=== PATIENT | male | born 1970 | race Caucasian/White ===

== ENCOUNTER 2017-06-21 20:03 | Observation (INO) | payer SELFPAY ==
[~2017-06-21] VITALS: Ht 180.3 cm; Wt 70.2 kg
[2017-06-21 20:05] VITALS: BP 119/75; PULSE 83; RESP 16; TEMP 98.7; O2SAT 97
[2017-06-21] MEDS ORDERED: SODIUM CHLOR 0.9% 1000 ML INJ 1,000 ML IV SCH (20:14)
[2017-06-21] MEDS ORDERED: KETOROLAC TROMETHAMINE 30 MG/ML (IVP) VIAL IVP ONE (20:15)
--- NOTE | 2017-06-21 20:22 | PD ---
HPI Chief Complaint: WEAKNESS Time Seen by Provider: 20:17 Travel History International Travel<30 days: No Contact w/Intl Traveler<30days: No Traveled to known affect area: No History of Present Illness HPI 47-year-old male that presents to the ED for evaluation of generalized weakness , body aches and chest discomfort. Per patient and Monday he was possibly bitten by something. Per patient he has a bite to his left leg. Per patient he was painful the beginning and then he became more red but now does not want to hurt. Per patient for the past couple days his been feeling weak and tired. He denies congestion or cough. She states that today he started developing chest pain. Per patient he also has a headache. He denies any other medical issues. He has not seen anybody for this. He does smoke. No allergies to medication. Has been taking OTC meds with minimal relief. Pain on the chest is 6 out of 10. Comes and goes. PFSH Past Medical History Medical History: Denies Significant Hx Social History Alcohol Use: Yes Tobacco Use: Yes Substance Use: No Allergies-Medications (Allergen,Severity, Reaction): Coded Allergies: No Known Allergies (Unverified , 06/21/17) Review of Systems Except as stated in HPI: all other systems reviewed are Neg Physical Exam Narrative GENERAL: SKIN: Warm and dry. HEAD: Atraumatic. Normocephalic. EYES: Pupils equal and round. No scleral icterus. No injection or drainage. ENT: No nasal bleeding or discharge. Mucous membranes pink and moist. Tongue is midline. No uvula deviation. TMs are clear with no sign of infection or perforation. Nostrils are patent bilaterally. Tonsils are normal. NECK: Trachea midline. No JVD. CARDIOVASCULAR: Regular rate and rhythm. No murmurs, S3, S4. RESPIRATORY: No accessory muscle use. Clear to auscultation. Breath sounds equal bilaterally. GASTROINTESTINAL: Abdomen soft, non-tender, nondistended. Hepatic and splenic margins not palpable. MUSCULOSKELETAL: Extremities without clubbing, cyanosis, or edema. No obvious deformities. Full range of motion of the upper and lower extremities bilaterally. 2+ pulses bilaterally. NEUROLOGICAL: Awake and alert. No obvious cranial nerve deficits. Motor grossly within normal limits. Five out of 5 muscle strength in the arms and legs. Normal speech. PSYCHIATRIC: Appropriate mood and affect; insight and judgment normal. Data Data Last Documented VS Vital Signs Date Time Temp Pulse Resp B/P Pulse Ox O2 Delivery O2 Flow Rate FiO2 06/21/17 20:28 97 06/21/17 20:05 98.7 83 16 119/75 Orders Electrocardiogram (06/21/17 20:14) Complete Blood Count With Diff (06/21/17 20:14) Basic Metabolic Panel (Bmp) (06/21/17 20:14) Ckmb (Isoenzyme) Profile (06/21/17 20:14) Troponin I (06/21/17 20:14) Blood Culture (06/21/17 20:14) Lipase (06/21/17 20:14) Urinalysis - C+S If Indicated (06/21/17 20:14) Magnesium (Mg) (06/21/17 20:14) Thyroid Stimulating Hormone (06/21/17 20:14) Chest, Single Ap (06/21/17 20:14) Iv Access Insert/Monitor (06/21/17 20:14) Ecg Monitoring (06/21/17 20:14) Oximetry (06/21/17 20:14) Drug Screen, Random Urine (06/21/17 20:14) Alcohol (Ethanol) (06/21/17 20:14) Lactic Acid (06/21/17 20:14) Lyme Disease Pcr (06/21/17 20:14) Sodium Chlor 0.9% 1000 Ml Inj (Ns 1000 M (06/21/17 20:14) Ketorolac Inj (Toradol Inj) (06/21/17 20:15) Influenzae A/B Antigen (06/21/17 20:14) Aspirin (Aspirin) (06/21/17 21:00) CKMB (06/21/17 20:30) CKMB% (06/21/17 20:30) C-Reactive Protein (Crp) (06/21/17 21:46) Westergren Sedimentation Rate (06/21/17 21:46) Vancomycin Inj (Vancomycin Inj) (06/21/17 22:00) Doxycycline Inj (Vibramycin Inj) (06/21/17 22:00) Labs Laboratory Tests Test 06/21/17 06/21/17 06/21/17 20:30 20:35 20:45 White Blood Count 6.3 TH/MM3 Red Blood Count 4.09 MIL/MM3 Hemoglobin 13.0 GM/DL Hematocrit 37.8 % Mean Corpuscular Volume 92.5 FL Mean Corpuscular Hemoglobin 31.9 PG Mean Corpuscular Hemoglobin 34.5 % Concent Red Cell Distribution Width 12.0 % Platelet Count 127 TH/MM3 Mean Platelet Volume 8.4 FL Neutrophils (%) (Auto) 74.8 % Lymphocytes (%) (Auto) 15.5 % Monocytes (%) (Auto) 8.5 % Eosinophils (%) (Auto) 0.6 % Basophils (%) (Auto) 0.6 % Neutrophils # (Auto) 4.8 TH/MM3 Lymphocytes # (Auto) 1.0 TH/MM3 Monocytes # (Auto) 0.5 TH/MM3 Eosinophils # (Auto) 0.0 TH/MM3 Basophils # (Auto) 0.0 TH/MM3 CBC Comment DIFF FINAL Differential Comment Sodium Level 137 MEQ/L Potassium Level 3.6 MEQ/L Chloride Level 104 MEQ/L Carbon Dioxide Level 26.4 MEQ/L Anion Gap 7 MEQ/L Blood Urea Nitrogen 7 MG/DL Creatinine 0.83 MG/DL Estimat Glomerular Filtration 98 ML/MIN Rate Random Glucose 90 MG/DL Calcium Level 8.5 MG/DL Magnesium Level 2.0 MG/DL Total Creatine Kinase 158 U/L Creatine Kinase MB 1.2 NG/ML Troponin I LESS THAN 0.02 NG/ML Lipase 151 U/L Thyroid Stimulating Hormone 1.080 uIU/ML 3rd Gen Ethyl Alcohol Level LESS THAN 3 MG/DL Lactic Acid Level 0.9 mmol/L Urine Color YELLOW Urine Turbidity CLEAR Urine pH 6.0 Urine Specific [place] 1.005 Urine Protein NEG mg/dL Urine Glucose (UA) NEG mg/dL Urine Ketones NEG mg/dL Urine Occult Blood NEG Urine Nitrite NEG Urine Bilirubin NEG Urine Leukocyte Esterase NEG Urine Squamous Epithelial 0-5 /hpf Cells Microscopic Urinalysis Comment CULT NOT INDICATED Urine Opiates Screen NEG Urine Barbiturates Screen NEG Urine Amphetamines Screen NEG Urine Benzodiazepines Screen NEG Urine Cocaine Screen NEG Urine Cannabinoids Screen NEG [facility] Medical Decision Making Medical Screen Exam Complete: Yes Emergency Medical Condition: Yes Medical Record Reviewed: Yes Interpretation(s) EKG shows sinus rhythm with no sign of acute ischemia or arrhythmia read by me and attending. CBC & BMP Diagram 06/21/17 20:30 troponin and CKMB negative lactic acid negative UA negative tox screen negative Last Impressions Chest X-Ray 06/21/172013 Signed Impressions: Service Date/Time: Wednesday, June 21, 2017 20:49 - CONCLUSION: No acute disease. Telly Bernal MD lactic acid WNL Differential Diagnosis Generalized weakness versus chest pain versus atypical chest pain versus viral illness versus kidney disease versus sepsis versus influenza versus ACS Narrative Course 47-year-old male that presents to the ED for evaluation of generalized weakness and insect bite. Patient was properly examined and was found to have signs and symptoms consistent what appears to be possible viral illness versus take disease. Patient did have insect bite to his left leg and ever since his been having the symptoms. He apparently told triage that he had cold-like symptoms but he completely denies having any cough or runny nose. He states that his main symptoms of generalized weakness and body aches all throughout. He has been taking OTC meds with minimal relief. He also complains of chest pain and is a smoker. He does have risk factors including age. Per patient he has chest pain at this time. ACS appears to be less likely. At this time I recommend labs and imaging. Labs and imaging were ordered and showed no sign of acute disease. Everything for the most part has been negative. Not even a WBC count. Patient still feels lousy even after given 1 bolus of fluid as well as Toradol IV. Case was discussed in my attending Dr. Fitzgerald who was made aware of all findings and actually evaluated the patient with me. He recommends admission for further workup and evaluation. States that this is less likely Lyme disease but will cover for this with doxycycline secondary to patient's symptoms. My attending spoke with Dr. millan agreed to admission for. Diagnosis Primary Impression: Chest pain Qualified Code: R07.9 - Chest pain, unspecified type Additional Impressions: Left leg cellulitis Arthralgia Qualified Code: M25.50 - Arthralgia, unspecified joint Myalgia Admitting Information Admitting Physician Requests: Selvin Carcamo Jun 21, 2017 20:22
[2017-06-21 20:28] VITALS: O2SAT 97
[2017-06-21 20:53] LABS: AUTOMATED NEUTROPHIL # 4.8 TH/MM3 (1.8-7.7); BASOPHIL % 0.6 % (0.0-2.0); EOSINOPHIL % 0.6 % (0.0-4.0); HEMATOCRIT 37.8 % (39.0-51.0); HEMO FLAGS DIFF FINAL; LYMPH % 15.5 % (9.0-44.0); MEAN CELL VOLUME 92.5 FL (80.0-100.0); MEAN CORPUSCULAR HEMOGLOBIN 31.9 PG (27.0-34.0); MEAN CORPUSCULAR HGB CONC 34.5 % (32.0-36.0); MONO % 8.5 % (0.0-8.0); NEUT % 74.8 % (16.0-70.0); PLATELET COUNT 127 TH/MM3 (150-450); RED BLOOD COUNT 4.09 MIL/MM3 (4.50-5.90); WHITE BLOOD COUNT 6.3 TH/MM3 (4.0-11.0)
[2017-06-21 20:55] LABS: BLOOD, URINE NEG (NEG); GLUCOSE,URINE NEG (NEG); KETONE, URINE NEG (NEG); NITRITE,URINE NEG (NEG)
[2017-06-21] MEDS ORDERED: ASPIRIN 325 MG TAB PO ONE (21:00)
[2017-06-21 21:03] LABS: CHLORIDE 104 MEQ/L (98-107); POTASSIUM 3.6 MEQ/L (3.5-5.1); SODIUM (NA) 137 MEQ/L (136-145)
[2017-06-21 21:06] LABS: ANION GAP 7 MEQ/L (5-15); BICARBONATE 26.4 MEQ/L (21.0-32.0)
[2017-06-21 21:06] LABS: COMMENT (UR) CULT NOT INDICATED; CULTURE IF INDICATED CULT NOT INDICATED; SQUAMOUS EPITHELIAL CELL URINE 0-5 /hpf (0-5); URINE COLOR YELLOW (YELLW/STRAW)
[2017-06-21 21:07] LABS: BLOOD UREA NITROGEN 7 MG/DL (7-18)
[2017-06-21 21:09] LABS: GLOMERULAR FILTRATION RATE 98 ML/MIN (>89)
[2017-06-21 21:11] LABS: AMPHETAMINE, URINE NEG (NEG); BARBITURATES, URINE NEG (NEG)
[2017-06-21 21:13] LABS: CREATINE KINASE 158 U/L (39-308)
--- NOTE | 2017-06-21 21:17 | RADRPT ---
EXAM DATE/TIME: 06/21/2017 20:49 [place] COMPARISON: No previous studies available for comparison. INDICATIONS : Chest pain, flu-like symptoms for 4 days MEDICAL HISTORY : None. SURGICAL HISTORY : None. ENCOUNTER: Initial ACUITY: 4 - 6 days PAIN SCORE: 5/10 LOCATION: Bilateral chest FINDINGS: A single view of the chest demonstrates the lungs to be symmetrically aerated without evidence of mas s, infiltrate or effusion. The cardiomediastinal contours are unremarkable. Osseous structures are intact. CONCLUSION: No acute disease. Telly Bernal MD on June 21, 2017 at 21:15 Board Certified Radiologist. This report was verified electronically.
[2017-06-21 21:19] LABS: COCAINE, URINE NEG (NEG)
[2017-06-21 21:31] LABS: CKMB 1.2 NG/ML (0.5-3.6)
--- NOTE | 2017-06-21 21:47 | PD ---
Physical Exam Narrative Patient was seen by me and my legal administrative assistant. Data Data Last Documented VS Vital Signs Date Time Temp Pulse Resp B/P Pulse Ox O2 Delivery O2 Flow Rate FiO2 06/21/17 20:28 97 06/21/17 20:05 98.7 83 16 119/75 Orders Electrocardiogram (06/21/17 20:14) Complete Blood Count With Diff (06/21/17 20:14) Basic Metabolic Panel (Bmp) (06/21/17 20:14) Ckmb (Isoenzyme) Profile (06/21/17 20:14) Troponin I (06/21/17 20:14) Blood Culture (06/21/17 20:14) Lipase (06/21/17 20:14) Urinalysis - C+S If Indicated (06/21/17 20:14) Magnesium (Mg) (06/21/17 20:14) Thyroid Stimulating Hormone (06/21/17 20:14) Chest, Single Ap (06/21/17 20:14) Iv Access Insert/Monitor (06/21/17 20:14) Ecg Monitoring (06/21/17 20:14) Oximetry (06/21/17 20:14) Drug Screen, Random Urine (06/21/17 20:14) Alcohol (Ethanol) (06/21/17 20:14) Lactic Acid (06/21/17 20:14) Lyme Disease Pcr (06/21/17 20:14) Sodium Chlor 0.9% 1000 Ml Inj (Ns 1000 M (06/21/17 20:14) Ketorolac Inj (Toradol Inj) (06/21/17 20:15) Influenzae A/B Antigen (06/21/17 20:14) Aspirin (Aspirin) (06/21/17 21:00) CKMB (06/21/17 20:30) CKMB% (06/21/17 20:30) Labs Laboratory Tests Test 06/21/17 06/21/17 06/21/17 20:30 20:35 20:45 White Blood Count 6.3 TH/MM3 Red Blood Count 4.09 MIL/MM3 Hemoglobin 13.0 GM/DL Hematocrit 37.8 % Mean Corpuscular Volume 92.5 FL Mean Corpuscular Hemoglobin 31.9 PG Mean Corpuscular Hemoglobin 34.5 % Concent Red Cell Distribution Width 12.0 % Platelet Count 127 TH/MM3 Mean Platelet Volume 8.4 FL Neutrophils (%) (Auto) 74.8 % Lymphocytes (%) (Auto) 15.5 % Monocytes (%) (Auto) 8.5 % Eosinophils (%) (Auto) 0.6 % Basophils (%) (Auto) 0.6 % Neutrophils # (Auto) 4.8 TH/MM3 Lymphocytes # (Auto) 1.0 TH/MM3 Monocytes # (Auto) 0.5 TH/MM3 Eosinophils # (Auto) 0.0 TH/MM3 Basophils # (Auto) 0.0 TH/MM3 CBC Comment DIFF FINAL Differential Comment Sodium Level 137 MEQ/L Potassium Level 3.6 MEQ/L Chloride Level 104 MEQ/L Carbon Dioxide Level 26.4 MEQ/L Anion Gap 7 MEQ/L Blood Urea Nitrogen 7 MG/DL Creatinine 0.83 MG/DL Estimat Glomerular Filtration 98 ML/MIN Rate Random Glucose 90 MG/DL Calcium Level 8.5 MG/DL Magnesium Level 2.0 MG/DL Total Creatine Kinase 158 U/L Creatine Kinase MB 1.2 NG/ML Troponin I LESS THAN 0.02 NG/ML Lipase 151 U/L Thyroid Stimulating Hormone 1.080 uIU/ML 3rd Gen Ethyl Alcohol Level LESS THAN 3 MG/DL Lactic Acid Level 0.9 mmol/L Urine Color YELLOW Urine Turbidity CLEAR Urine pH 6.0 Urine Specific [place] 1.005 Urine Protein NEG mg/dL Urine Glucose (UA) NEG mg/dL Urine Ketones NEG mg/dL Urine Occult Blood NEG Urine Nitrite NEG Urine Bilirubin NEG Urine Leukocyte Esterase NEG Urine Squamous Epithelial 0-5 /hpf Cells Microscopic Urinalysis Comment CULT NOT INDICATED Urine Opiates Screen NEG Urine Barbiturates Screen NEG Urine Amphetamines Screen NEG Urine Benzodiazepines Screen NEG Urine Cocaine Screen NEG Urine Cannabinoids Screen NEG MDM Supervised Visit with ALFREDO: Yes Differential Diagnosis Differential diagnosis including viral syndrome, Narrative Course 47-year-old male with headache, myalgia, arthralgia, redness lesion left leg. Patient started having sharp shooting pain left chest this evening. No evidence of meningitis. Diagnosis Primary Impression: Chest pain Qualified Code: R07.9 - Chest pain, unspecified type Additional Impressions: Myalgia Arthralgia Qualified Code: M25.50 - Arthralgia, unspecified joint Left leg cellulitis Admitting Information Admitting Physician Requests: Observation Rakan Fitzgerald MD Jun 21, 2017 21:47
[2017-06-21] MEDS ORDERED: DOXYCYCLINE INJ 100 MG in SODIUM CHLORIDE 0.9% INJ 100 ML IV ONE (22:00)
[2017-06-21] MEDS ORDERED: VANCOMYCIN INJ 1,000 MG in SODIUM CHLOR 0.9% 250 ML INJ 250 ML IV ONE (22:00)
[2017-06-21] MEDS ORDERED: NALOXONE HCL 0.4 MG/ML AMP IV PRN (22:15)
[2017-06-21] MEDS ORDERED: SODIUM CHLORIDE 0.9% FLUSH 10 ML FLUSH IV FLUSH PRN (22:15)
[2017-06-21] MEDS ORDERED: Vancomycin Consult Pharmacy 1 EA OTHER SCH (22:30)
[2017-06-21 22:34] VITALS: BP 89/54; PULSE 67; O2SAT 97
[2017-06-21] MEDS ORDERED: SODIUM CHLOR 0.9% 1000 ML INJ 1,000 ML IV ONE (22:45)
[2017-06-21 23:05] VITALS: BP 106/75; PULSE 71; RESP 18; O2SAT 97
[2017-06-22] VITALS: BP 111/66; PULSE 66; RESP 12; TEMP 100.4; O2SAT 95
[2017-06-22] MEDS: ACETAMINOPHEN 325 MG TAB PO PRN ×2 (00:32→08:59)
[2017-06-22 01:00] VITALS: PULSE 71
[2017-06-22 04:00] VITALS: BP 92/61; PULSE 59; RESP 18; TEMP 99.3; O2SAT 95
[2017-06-22 05:13] LABS: AUTOMATED NEUTROPHIL # 3.5 TH/MM3 (1.8-7.7); BASOPHIL % 0.4 % (0.0-2.0); EOSINOPHIL # 0.1 TH/MM3 (0-0.4); EOSINOPHIL % 1.2 % (0.0-4.0); HEMATOCRIT 34.9 % (39.0-51.0); HEMO FLAGS DIFF FINAL; LYMPH % 20.6 % (9.0-44.0); MEAN CELL VOLUME 92.8 FL (80.0-100.0); MEAN CORPUSCULAR HGB CONC 33.5 % (32.0-36.0); MONO % 10.2 % (0.0-8.0); NEUT % 67.6 % (16.0-70.0); PLATELET COUNT 107 TH/MM3 (150-450); RED BLOOD COUNT 3.76 MIL/MM3 (4.50-5.90); RED CELL DISTRIBUTION WIDTH 12.1 % (11.6-17.2); WHITE BLOOD COUNT 5.1 TH/MM3 (4.0-11.0)
[2017-06-22 05:23] LABS: POTASSIUM 3.5 MEQ/L (3.5-5.1)
[2017-06-22 05:26] LABS: BICARBONATE 23.3 MEQ/L (21.0-32.0)
[2017-06-22 07:00] VITALS: PULSE 58
[2017-06-22 08:00] VITALS: BP 96/63; PULSE 59; PULSE 62; RESP 22; TEMP 99.4; O2SAT 95
[2017-06-22] MEDS ORDERED: DOXYCYCLINE HYCLATE 100 MG TAB PO SCH (09:00)
[2017-06-22] MEDS ORDERED: SODIUM CHLORIDE 0.9% FLUSH 10 ML FLUSH IV FLUSH SCH (09:00)
[2017-06-22] MEDS ORDERED: VANCOMYCIN INJ 1,300 MG in SODIUM CHLORID 0.9% 500 ML INJ 500 ML IV SCH (10:00)
[2017-06-22 12:00] VITALS: BP 94/57; PULSE 54; RESP 17; TEMP 98.1; O2SAT 96
--- NOTE | 2017-06-22 12:51 | EKG ---
Date Performed: 06/21/2017 Time Performed: 20:22:27 PTAGE: 47 years EKG: Sinus rhythm INCOMPLETE RIGHT BUNDLE BRANCH BLOCK BORDERLINE ECG NO PREVIOUS TRACING DOCTOR: Antoine Hernandez Interpretating Date/Time 06/22/2017 12:47:28
--- NOTE | 2017-06-22 13:06 | HHI.DCPOC ---
Discharge Care Plan Diagnosis: (1) Myalgia Goals to Promote Your Health * To prevent worsening of your condition and complications * To maintain your health at the optimal level Directions to Meet Your Goals Take your medications as prescribed Follow your dietary instruction Follow activity as directed Keep your appointments as scheduled Take your immunizations and boosters as scheduled If your symptoms worsen call your PCP, if no PCP go to Urgent Care Center or Emergency Room Smoking is Dangerous to Your Health. Avoid second hand smoke Call the 24-hour hour crisis hotline for domestic abuse at Laly Roth MD Jun 22, 2017 13:06
--- NOTE | 2017-06-22 13:13 | HHI.HP ---
[facility] No Primary Care Physician Admission Diagnosis chest pain, myalgias, generalized weakness Diagnoses: Chief Complaint: Weakness and fatigue Travel History International Travel<30 Days: No Contact w/Intl Traveler <30 Da: No Traveled to Known Affected Are: No History of Present Illness Patient is a 47-year-old gentleman who came to emergency room complaining of generalized weakness for 5 days prior to arrival. Patient says he also has generalized body aches and was sleepy. He did have evaluation emergency room which all was relatively benign. Patient did not have fever. He is no leukocytosis. He did have an isolated elevated CRP which is nonspecific given his other complaints. He also had a left calf well-healing bug bite which was concerning to the patient although it was healing and improving during his initial evaluation per his report. Patient says he has no pain is not short of breath and has no chest pain. He had a headache earlier but this has resolved also. Patient has not had any fevers here. He has no leukocytosis. He did have decrease in platelets without any evidence of bleeding. He was empirically given IV antibiotics however his cultures have been unremarkable since his arrival. Review of Systems Constitutional: COMPLAINS OF: Fatigue, Fever (subjective), Change in appetite Endocrine: DENIES: Heat/cold intolerance, Polydipsia, Polyuria, Polyphagia Eyes: DENIES: Blurred vision, Diplopia, Eye inflammation, Eye pain, Vision loss , Photosensitivity, Double Vision Ears, nose, mouth, throat: DENIES: Tinnitus, Hearing loss, Vertigo, Nasal discharge, Oral lesions, Throat pain, Hoarseness, Ear Pain, Running Nose, Epistaxis, Sinus Pain, Toothache, Odynophagia Respiratory: DENIES: Apneas, Cough, Snoring, Wheezing, Hemoptysis, Sputum production, Shortness of breath Cardiovascular: DENIES: Chest pain, Palpitations, Syncope, Dyspnea on Exertion , PND, Lower Extremity Edema, Orthopnea, Claudication Gastrointestinal: DENIES: Abdominal pain, Black stools, Bloody stools, Constipation, Diarrhea, Nausea, Vomiting, Difficulty Swallowing, Anorexia Genitourinary: DENIES: Sexual dysfunction, Urinary frequency, Urinary incontinence, Urgency, Hematuria, Dysuria, Nocturia, Penile Discharge, Testicular Pain, Testicular Swelling Musculoskeletal: DENIES: Joint pain, Muscle aches, Stiffness, Joint Swelling, Back pain, Neck pain Integumentary: DENIES: Abnormal pigmentation, Nail changes, Pruritus, Rash Hematologic/lymphatic: DENIES: Bruising, Lymphadenopathy Neurologic: DENIES: Abnormal gait, Headache, Localized weakness, Paresthesias, Seizures, Speech Problems, Tremor, Poor Balance Psychiatric: DENIES: Anxiety, Confusion, Mood changes, Depression, Hallucinations, Agitation, Suicidal Ideation, Homicidal Ideation, Delusions Past Family Social History Past Medical History Denies Past Surgical History Denies Reported Medications Denies Allergies: Coded Allergies: No Known Allergies (Unverified , 06/21/17) Active Ordered Medications Reviewed in the medical record Family History Mother has diabetes and fibromyalgia, father was killed Social History Beer daily, 1 pack cigarettes daily, lives with his significant other, 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 SKIN: No rashes, ecchymoses or lesions. Cool and dry. HEAD: Atraumatic. Normocephalic. No temporal or scalp tenderness. EYES: Pupils equal round and reactive. Extraocular motions intact. No scleral icterus. No injection or drainage. ENT: Nose without bleeding, purulent drainage or septal hematoma. Throat without erythema, tonsillar hypertrophy or exudate. Uvula midline. Airway patent. NECK: Trachea midline. No JVD or lymphadenopathy. Supple, nontender, no meningeal signs. CARDIOVASCULAR: Regular rate and rhythm without murmurs, gallops, or rubs. RESPIRATORY: Clear to auscultation. Breath sounds equal bilaterally. No wheezes , rales, or rhonchi. GASTROINTESTINAL: Abdomen soft, non-tender, nondistended. No hepato-splenomegaly , or palpable masses. No guarding. MUSCULOSKELETAL: Extremities without clubbing, cyanosis, or edema. No joint tenderness, effusion, or edema noted. No calf tenderness. Negative Homans sign bilaterally. NEUROLOGICAL: Awake and alert. Cranial nerves II through XII intact. Motor and sensory grossly within normal limits. Five out of 5 muscle strength in all muscle groups. Normal speech. Laboratory Laboratory Tests Test 06/21/17 06/21/17 06/21/17 06/22/17 20:30 20:35 20:45 04:53 White Blood Count 6.3 5.1 Red Blood Count 4.09 3.76 Hemoglobin 13.0 11.7 Hematocrit 37.8 34.9 Mean Corpuscular Volume 92.5 92.8 Mean Corpuscular Hemoglobin 31.9 31.0 Mean Corpuscular Hemoglobin 34.5 33.5 Concent Red Cell Distribution Width 12.0 12.1 Platelet Count 127 107 Mean Platelet Volume 8.4 8.3 Neutrophils (%) (Auto) 74.8 67.6 Lymphocytes (%) (Auto) 15.5 20.6 Monocytes (%) (Auto) 8.5 10.2 Eosinophils (%) (Auto) 0.6 1.2 Basophils (%) (Auto) 0.6 0.4 Neutrophils # (Auto) 4.8 3.5 Lymphocytes # (Auto) 1.0 1.0 Monocytes # (Auto) 0.5 0.5 Eosinophils # (Auto) 0.0 0.1 Basophils # (Auto) 0.0 0.0 CBC Comment DIFF FINAL DIFF FINAL Differential Comment Erythrocyte Sedimentation Rate 11 Sodium Level 137 138 Potassium Level 3.6 3.5 Chloride Level 104 106 Carbon Dioxide Level 26.4 23.3 Anion Gap 7 9 Blood Urea Nitrogen 7 8 Creatinine 0.83 0.75 Estimat Glomerular Filtration 98 111 Rate Random Glucose 90 93 Calcium Level 8.5 7.9 Magnesium Level 2.0 Total Creatine Kinase 158 Creatine Kinase MB 1.2 Troponin I LESS THAN 0.02 C-Reactive Protein 4.60 Lipase 151 Thyroid Stimulating Hormone 1.080 3rd Gen Ethyl Alcohol Level LESS THAN 3 Lactic Acid Level 0.9 Urine Color YELLOW Urine Turbidity CLEAR Urine pH 6.0 Urine Specific [place] 1.005 Urine Protein NEG Urine Glucose (UA) NEG Urine Ketones NEG Urine Occult Blood NEG Urine Nitrite NEG Urine Bilirubin NEG Urine Leukocyte Esterase NEG Urine Squamous Epithelial 0-5 Cells Microscopic Urinalysis Comment CULT NOT INDICATED Urine Opiates Screen NEG Urine Barbiturates Screen NEG Urine Amphetamines Screen NEG Urine Benzodiazepines Screen NEG Urine Cocaine Screen NEG Urine Cannabinoids Screen NEG Date/Time Procedure Status Source Growth 06/21/17 20:40 Influenza Types A,B Antigen (ISAIAH) - Final Complete Nasal Washing NEGATIVE FOR FLU A AND B ANTIGEN.... 06/21/17 20:35 Aerobic Blood Culture - Preliminary Resulted Blood Peripheral NO GROWTH IN 1 DAY 06/21/17 20:35 Anaerobic Blood Culture - Preliminary Resulted Blood Peripheral NO GROWTH IN 1 DAY Result Diagram: 06/22/17 0453 06/22/17 0453 Assessment and Plan Problem List: (1) Myalgia ICD Code: M79.1 Status: Acute Plan: Likely viral, continue supportive care and hydration (2) Thrombocytopenia ICD Code: D69.6 Status: Acute Plan: likely viral in nature, no active bleeding Assessment and Plan Discharge home Activity unrestricted Diet regular Code Status Full code Discussed Condition With Patient, significant other and nursing team Laly Roth MD Jun 22, 2017 13:13
[2017-06-23] MEDS ORDERED: VANCOMYCIN TROUGH ONE (21:45)
== END 2017-06-22 14:10 | disposition home or self-care (01) ==
LOC: PHEFT 20:03 → PHEDA 22:21 → PHICU 23:45
PROVIDERS: ADMIT Hospitalist; ATTEND Hospitalist
DX: M79.1 Myalgia (principal); D69.6 Thrombocytopenia, unspecified; R07.9 Chest pain, unspecified; I45.10 Unspecified right bundle-branch block; R53.1 Weakness; R53.83 Other fatigue; R79.82 Elevated C-reactive protein (CRP); R51 Headache; S80.862A Insect bite (nonvenomous), left lower leg, initial encounter; L03.116 Cellulitis of left lower limb; F17.210 Nicotine dependence, cigarettes, uncomplicated; W57.XXXA Bitten or stung by nonvenomous insect and other nonvenomous arthropods, initial encounter
CPT/HCPCS: 71010; 80048; 80307; 81001; 82550; 82552; 83605; 83690; 83735; 84443; 84484; 85025; 85652; 86140; 87040; 87801; 87804; 93005; 96361; 96374; 99285; G0378; J1885; J3370; J7030; J7040; J7050

== ENCOUNTER 2017-06-25 18:13 | Emergency (ER) | payer SELFPAY ==
[~2017-06-25] VITALS: Ht 180.3 cm; Wt 70.0 kg
[2017-06-25 18:35] VITALS: BP 110/63; PULSE 71; RESP 18; TEMP 99.1; O2SAT 98
[2017-06-25] MEDS ORDERED: TYLE325T PO (18:38)
[2017-06-25] MEDS ORDERED: IBUP-1129 (18:38)
[2017-06-25] MEDS ORDERED: ONDANSETRON HCL 4 MG/2 ML VIAL IV PUSH ONE (19:15)
[2017-06-25] MEDS ORDERED: SODIUM CHLOR 0.9% 1000 ML INJ 1,000 ML IV ONE (19:15)
[2017-06-25] MEDS ORDERED: MORPHINE SULFATE 4 MG/ML INJ IV PUSH ONE (19:15)
--- NOTE | 2017-06-25 19:15 | PD ---
HPI Chief Complaint: Pain: Acute or Chronic Time Seen by Provider: 19:09 Travel History International Travel<30 days: No Contact w/Intl Traveler<30days: No Traveled to known affect area: No History of Present Illness HPI 47-year-old male with history of recent visit to the ER for viral syndrome and myalgias him in overnight and released, presents to the ER today because of ongoing myalgias over last few days, he measures it at an 8 out of 10, all over the body, malaise, headaches, sore throat, and bilateral leg discomfort and swelling. He denies any recent vomiting, but states he has been having diarrhea , denies any other issues. They do not know sick contacts and has not recently traveled. Modifying Factors: None Associated Signs & Symptoms: Myalgias, malaise, headaches, sore throat, diarrhea Risk Factors: Recent visit for the same, release several days ago PFS Past Medical History Medical History: Denies Significant Hx Autoimmune Disease: No Cancer: No Cardiovascular Problems: No Diminished Hearing: No Endocrine: No Genitourinary: No Immune Disorder: No Musculoskeletal: Yes Neurologic: No Psychiatric: No Reproductive: No Respiratory: No ?: Not Past Surgical History Neurologic Surgery: Yes (C4-C5 fusion) Social History Alcohol Use: Yes (BEER DAILY) Tobacco Use: Yes (1PPD) Substance Use: Yes (occasional marijuana) Allergies-Medications (Allergen,Severity, Reaction): Coded Allergies: No Known Allergies (Unverified , 06/25/17) Reported Meds & Prescriptions Reported Meds & Active Scripts Active Reported Motrin Ib (Ibuprofen) 200 Mg Tablet 0 Tylenol (Acetaminophen) 325 Mg Tab 650 Mg PO Q4H PRN Review of Systems Except as stated in HPI: all other systems reviewed are Neg Physical Exam Narrative GENERAL: Well-developed middle age white male patient currently in moderate distress. Awake and oriented 3. SKIN: Focused skin assessment warm/dry. HEAD: Atraumatic. Normocephalic. EYES: Pupils equal and round. No scleral icterus. No injection or drainage. ENT: No nasal bleeding or discharge. Mucous membranes pink and moist. NECK: Trachea midline. No JVD. CARDIOVASCULAR: Regular rate and rhythm. No murmur appreciated. RESPIRATORY: No accessory muscle use. Clear to auscultation. Breath sounds equal bilaterally. GASTROINTESTINAL: Abdomen soft, non-tender, nondistended. Hepatic and splenic margins not palpable. MUSCULOSKELETAL: No obvious deformities. No clubbing. No cyanosis. No edema. NEUROLOGICAL: Awake and alert. No obvious cranial nerve deficits. Motor grossly within normal limits. Normal speech. PSYCHIATRIC: Appropriate mood and affect; insight and judgment normal. Data Data Last Documented VS Vital Signs Date Time Temp Pulse Resp B/P Pulse Ox O2 Delivery O2 Flow Rate FiO2 06/25/17 20:47 20 06/25/17 20:31 60 117/68 95 06/25/17 18:35 99.1 Orders Complete Blood Count With Diff (06/25/17 19:11) Comprehensive Metabolic Panel (06/25/17 19:11) Creatine Kinase (Cpk) (06/25/17 19:11) C-Reactive Protein (Crp) (06/25/17 19:11) Westergren Sedimentation Rate (06/25/17 19:11) Iv Access Insert/Monitor (06/25/17 19:11) Lactic Acid Sepsis Protocol (06/25/17 19:11) Sodium Chlor 0.9% 1000 Ml Inj (Ns 1000 M (06/25/17 19:15) Morphine Inj (Morphine Inj) (06/25/17 19:15) Ondansetron Inj (Zofran Inj) (06/25/17 19:15) Acetaminophen (Tylenol) (06/25/17 20:00) Labs Laboratory Tests Test 06/25/17 20:15 White Blood Count 5.5 TH/MM3 Red Blood Count 3.69 MIL/MM3 Hemoglobin 11.8 GM/DL Hematocrit 34.5 % Mean Corpuscular Volume 93.5 FL Mean Corpuscular Hemoglobin 31.9 PG Mean Corpuscular Hemoglobin 34.1 % Concent Red Cell Distribution Width 12.2 % Platelet Count 182 TH/MM3 Mean Platelet Volume 7.9 FL Neutrophils (%) (Auto) 76.3 % Lymphocytes (%) (Auto) 13.8 % Monocytes (%) (Auto) 8.6 % Eosinophils (%) (Auto) 0.9 % Basophils (%) (Auto) 0.4 % Neutrophils # (Auto) 4.2 TH/MM3 Lymphocytes # (Auto) 0.8 TH/MM3 Monocytes # (Auto) 0.5 TH/MM3 Eosinophils # (Auto) 0.0 TH/MM3 Basophils # (Auto) 0.0 TH/MM3 CBC Comment DIFF FINAL Differential Comment Erythrocyte Sedimentation Rate 1 mm/hr Sodium Level 139 MEQ/L Potassium Level 3.4 MEQ/L Chloride Level 104 MEQ/L Carbon Dioxide Level 29.0 MEQ/L Anion Gap 6 MEQ/L Blood Urea Nitrogen 12 MG/DL Creatinine 0.95 MG/DL Estimat Glomerular Filtration 84 ML/MIN Rate Random Glucose 119 MG/DL Lactic Acid Level 1.0 mmol/L Calcium Level 8.3 MG/DL Total Bilirubin 0.3 MG/DL Aspartate Amino Transf 45 U/L (AST/SGOT) Alanine Aminotransferase 62 U/L (ALT/SGPT) Alkaline Phosphatase 104 U/L Total Creatine Kinase 125 U/L Total Protein 6.2 GM/DL Albumin 2.9 GM/DL MDM Medical Decision Making Medical Screen Exam Complete: Yes Emergency Medical Condition: Yes Medical Record Reviewed: Yes Interpretation(s) Laboratory Tests Test 06/25/17 20:15 Red Blood Count 3.69 MIL/MM3 (4.50-5.90) Hemoglobin 11.8 GM/DL (13.0-17.0) Hematocrit 34.5 % (39.0-51.0) Neutrophils (%) (Auto) 76.3 % (16.0-70.0) Monocytes (%) (Auto) 8.6 % (0.0-8.0) Lymphocytes # (Auto) 0.8 TH/MM3 (1.0-4.8) Potassium Level 3.4 MEQ/L (3.5-5.1) Estimat Glomerular Filtration 84 ML/MIN (>89) Rate Random Glucose 119 MG/DL (74-106) Calcium Level 8.3 MG/DL (8.5-10.1) Aspartate Amino Transf 45 U/L (15-37) (AST/SGOT) Total Protein 6.2 GM/DL (6.4-8.2) Albumin 2.9 GM/DL (3.4-5.0) Differential Diagnosis Myalgias, malaise, sore throat, diarrheaviral syndrome versus dehydration versus metabolic issues versus rhabdomyolysis Narrative Course Lab work did not show significant leukocytosis and no signs of rhabdomyolysis. Patient was given IV fluids and symptomatic relief and is feeling more comfortable on reevaluation at 9:50 PM. At this point, I still suspect that this is secondary to a viral syndrome considering symptoms. I do not see any meningeal signs. My plan would be to release the patient with symptomatic relief for myalgias and follow-up closely with primary care doctor. Return for worsening in symptoms as necessary. The plan has discussed with him and and they state understanding. Diagnosis Primary Impression: Viral syndrome Additional Impression: Myalgia Med/Other Pt SpecificInfo: Prescription(s) given Scripts Tramadol 50 Mg Tab50 Mg PO Q6H PRN (PAIN) #15 TAB Ref 0 Prov:Lino Ibrahim MD 06/25/17 Disposition: DISCHARGE HOME Condition: Stable Lino Ibrahim MD Jun 25, 2017 19:15
[2017-06-25] MEDS ORDERED: ACETAMINOPHEN 500 MG CPLT PO ONE (20:00)
[2017-06-25 20:27] LABS: AUTOMATED NEUTROPHIL # 4.2 TH/MM3 (1.8-7.7); BASOPHIL % 0.4 % (0.0-2.0); EOSINOPHIL % 0.9 % (0.0-4.0); HEMATOCRIT 34.5 % (39.0-51.0); HEMO FLAGS DIFF FINAL; LYMPH % 13.8 % (9.0-44.0); LYMPHOCYTE # 0.8 TH/MM3 (1.0-4.8); MEAN CELL VOLUME 93.5 FL (80.0-100.0); MEAN CORPUSCULAR HEMOGLOBIN 31.9 PG (27.0-34.0); MEAN CORPUSCULAR HGB CONC 34.1 % (32.0-36.0); MONO % 8.6 % (0.0-8.0); NEUT % 76.3 % (16.0-70.0); PLATELET COUNT 182 TH/MM3 (150-450); RED BLOOD COUNT 3.69 MIL/MM3 (4.50-5.90); RED CELL DISTRIBUTION WIDTH 12.2 % (11.6-17.2); WHITE BLOOD COUNT 5.5 TH/MM3 (4.0-11.0)
[2017-06-25 20:31] VITALS: BP 117/68; PULSE 60; RESP 20; O2SAT 95
[2017-06-25 20:40] LABS: CHLORIDE 104 MEQ/L (98-107); POTASSIUM 3.4 MEQ/L (3.5-5.1); SODIUM (NA) 139 MEQ/L (136-145)
[2017-06-25 20:43] LABS: ANION GAP 6 MEQ/L (5-15)
[2017-06-25 20:44] LABS: BLOOD UREA NITROGEN 12 MG/DL (7-18)
[2017-06-25 20:46] LABS: ALT (GPT) 62 U/L (12-78); AST (GOT) 45 U/L (15-37)
[2017-06-25 20:47] LABS: GLOMERULAR FILTRATION RATE 84 ML/MIN (>89)
[2017-06-25 20:48] LABS: TOTAL BILIRUBIN ADULT 0.3 MG/DL (0.2-1.0)
[2017-06-25 20:49] LABS: ALKALINE PHOSPHATASE 104 U/L (45-117); CREATINE KINASE 125 U/L (39-308)
[2017-06-25 21:30] VITALS: BP 117/68; PULSE 94; RESP 20; O2SAT 98
[2017-06-25] MEDS ORDERED: TRAM50TA PO (21:53)
[2017-06-25] MEDS ORDERED: traMADol HCL 50 MG TAB PO ONE (23:15)
[2017-06-25 23:18] VITALS: BP 115/69; TEMP 99.8
== END 2017-06-25 23:21 | disposition home or self-care (01) ==
LOC: PHED 18:13
DX: B34.9 Viral infection, unspecified (principal); M79.1 Myalgia; F17.200 Nicotine dependence, unspecified, uncomplicated
CPT/HCPCS: 80053; 82550; 83605; 85025; 85652; 86140; 96374; 96375; 99284; J2270; J2405; J7030